=== PATIENT | female | born 1950 | race Caucasian/White ===

== ENCOUNTER 2017-01-03 11:17 | Observation (INO) ==
[2017-01-03 11:32] LABS: Bilirubin,Urine Negative (Negative); Blood,Urine Negative (Negative); Clarity,Urine Clear (Clear); Color,Urine Yellow (Yellow); Glucose,Urine (UA) Normal (Normal); Ketones,Urine Negative (Negative); Leukocyte Esterase,Urine Small (Negative); Nitrite,Urine Negative (Negative); PH,Urine 6.5 pH Units (5.0-8.0); Protein,Urine Negative (Neg-Trace); Urobilinogen,Urine Normal (Normal)
[2017-01-03 11:35] LABS: Bacteria,Urine None Seen per hpf (None-Few); Hyaline Casts,Urine None Seen per lpf (None-Few); RBC,Urine 0-3 per hpf (0-3); Squamous Epithelial Cell,Urine Many per lpf (None-Few); WBC,Urine 0-3 per hpf (0-3)
[2017-01-03 11:39] LABS: Basophils # 0.1 K/mcL (0.0-0.2); Basophils % 0.6 %; Eosinophils # 0.2 K/mcL (0.0-0.6); Eosinophils % 1.4 %; Hemoglobin 15.3 g/dL (11.5-15.4); Immature Granulocytes % 0.3 % (0-4); Lymphocytes # 1.6 K/mcL (0.6-4.6); Mean Corpuscular HGB Conc 32.6 g/dL (31.6-35.5); Mean Corpuscular Hemoglobin 26.7 pg (28.0-33.3); Mean Platelet Volume 9.9 fL (9.4-12.4); Monocytes # 0.8 K/mcL (0.0-1.3); Neutrophils # 8.8 K/mcL (1.6-8.9); Platelet Count 274 K/mcL (140-400); Red Blood Count 5.73 M/mcL (3.82-4.97); Red Cell Distribution Width 12.7 % (11.5-14.5); Segmented Neutrophils % 76.7 %
[2017-01-03 11:52] LABS: BUN/Creatinine Ratio 9 (6-26); Blood Urea Nitrogen 7 mg/dL (7-20); Calcium 9.7 mg/dL (8.6-10.8); Carbon Dioxide 28 mEq/L (19-29); Chloride 104 mEq/L (98-109); Glucose 94 mg/dL (70-99); Osmolality,Calculated 288 (280-300); Potassium 4.1 mEq/L (3.5-4.5); Sodium 140 mEq/L (136-145); eGFR For African Americans > 60 (> 60); eGFR For Non-African Americans > 60 (> 60)
[2017-01-03] MEDS ORDERED: Aspirin 81 MG TAB.CHEW PO ONE (12:20)
--- NOTE | 2017-01-03 12:20 | Emergency Department Note ---
Disposition Clinical Impression: Chest pain Qualifiers: Chest pain type: unspecified Qualified Code(s): R07.9 - Chest pain, unspecified Disposition: Admitted As Inpatient Condition: Good Referrals: Ernst Rosario DO [Primary Care Provider] - Time of Disposition: 12:23 Chest Pain HPI - General Chief Complaint: ED Chest Pain Stated Complaint: jaw pain arm pain Time Seen by Provider: 01/03/17 11:19 Source: patient Limitations: no limitations Vital Signs Reviewed: Yes Nursing Notes Reviewed: Yes - History of Present Illness HPI Narrative: Previously healthy 66-year-old female presents with progressive symptoms over the last 3 days. 3 days ago she noted severe malaise that lasted several hours with mild associated shortness of breath. She denied any attempts at exertion that would have worsen her symptoms. Symptoms remitted on their own. Yesterday , the patient again noted malaise and had mild symptoms and her left jaw. Today , she had significant pain in her left jaw, left upper chest, and left arm. This was associated with shortness of breath and paresthesias. Seen at urgent care for same and sent here for evaluation. Pain resolved on my evaluation. Severity scale (1-10): 0 - Related Data Home Medications Medication Instructions Recorded Confirmed Ca/D3/Mag#11/Zinc/Patcher/Vasyl/Bor 1 tab PO DAILY 01/03/17 01/03/17 [Caltrate 600+D Plus Tablet] Cholecalciferol (D-3) [Vitamin D] 1,000 unit PO DAILY 01/03/17 01/03/17 Cranberry 500 mg PO DAILY 01/03/17 01/03/17 Fluticasone Propionate Nasal 1 spray NS DAILY PRN 01/03/17 01/03/17 [Flonase] Krill/Om-3/Dha/Epa/Phospho/Ast 1,000 mg PO DAILY 01/03/17 01/03/17 [Krill Oil 1,000 mg Softgel] Vitamin E 100 unit PO DAILY 01/03/17 01/03/17 Allergies Allergy/AdvReac Type Severity Reaction Status Date / Time doxycycline Allergy Hives Verified 01/03/17 10:18 ibuprofen Allergy Gastrointestinal Verified 01/03/17 10:18 Upset All systems ED: reviewed and negative except as stated. Chest Pain PMH - Past Medical History Medical history: Reports: non-contributory - Social History Smoking Status: Never smoker Alcohol use: Reports: none Drug use: Reports: none Physical Exam - Head Head exam: atraumatic, normocephalic, normal inspection - Eye Eye exam: Present: normal appearance, PERRL, EOMI - ENT ENT exam: normal exam, normal oropharynx, mucous membranes moist - Neck Neck exam: Present: normal inspection, full ROM, trachea midline - Chest Chest inspection: Present: normal inspection, symmetric chest wall rise - Respiratory Respiratory exam: Clear to auscultation bilaterally without wheezes rales or rhonchi Cardiovascular Cardiovascular exam: Present: regular rate, normal rhythm, normal heart sounds - Abdominal Exam Abdominal exam: Present: soft, Non-Tender. Absent: tenderness, distention, guarding, rebound, rigidity - Extremities Exam Extremities exam: Present: normal inspection, full ROM - Expanded Lower Extremity Exam Hip/Pelvis exam: Present: normal inspection, full ROM - Back Exam Back exam: Present: normal inspection, full ROM. Absent: tenderness, CVA tenderness (R), CVA tenderness (L) - Neurological Exam Neurological exam: Present: alert, oriented X3, CN II-XII intact. Normal motor and sensory exam. Symptoms are not reproducible with cervical compression. - Psychiatric Psychiatric exam: Present: normal affect, normal mood - Skin Skin exam: Present: warm, dry, intact, normal color - General Limitations: no limitations Course - Reevaluation(s) Reevaluation #1: Troponin negative. EKG shows normal sinus rhythm at 70 with normal axis and intervals. There is mild diffuse T-wave flattening. No old EKG available for comparison. Patient has never had a stress test in the past. We will admit her for chest pain. Time: 12:22 Vital Signs Temperature 98.1 F 01/03/17 11:20 Pulse Rate 75 01/03/17 11:20 Respiratory Rate 18 01/03/17 11:20 Blood Pressure 155/84 01/03/17 11:20 O2 Sat by Pulse Oximetry 98 01/03/17 11:20 Temperature 98.1 F 01/03/17 13:55 Pulse Rate 71 01/03/17 13:55 Respiratory Rate 18 01/03/17 13:55 Blood Pressure 148/83 01/03/17 13:55 O2 Sat by Pulse Oximetry 96 01/03/17 13:55 Chest Pain - Lab Data Result diagrams: 01/03/17 11:32 01/03/17 11:32 Lab Results 01/03/17 01/03/17 01/03/17 Range/Units 11:24 11:32 11:32 WBC 11.5 H (4.3-11.1) K/mcL RBC 5.73 H (3.82-4.97) M/mcL Hgb 15.3 (11.5-15.4) g/dL Hct 47.0 H (35.3-44.9) % MCV 82.0 L (83.0-100.0) fL MCH 26.7 L (28.0-33.3) pg MCHC 32.6 (31.6-35.5) g/dL RDW 12.7 (11.5-14.5) % Plt Count 274 (140-400) K/mcL MPV 9.9 (9.4-12.4) fL Immature Gran % 0.3 (0-4) % Seg Neutrophils % 76.7 % Lymphocytes % 14.0 % Monocytes % 7.0 % Eosinophils % 1.4 % Basophils % 0.6 % Neutrophils # 8.8 (1.6-8.9) K/mcL Lymphocytes # 1.6 (0.6-4.6) K/mcL Monocytes # 0.8 (0.0-1.3) K/mcL Eosinophils # 0.2 (0.0-0.6) K/mcL Basophils # 0.1 (0.0-0.2) K/mcL Sodium 140 (136-145) mEq/L Potassium 4.1 (3.5-4.5) mEq/L Chloride 104 (98-109) mEq/L Carbon Dioxide 28 (19-29) mEq/L BUN 7 (7-20) mg/dL Creatinine 0.76 (0.57-1.11) mg/dL Est GFR ( Amer) > 60 (> 60) Est GFR (Non-Af Amer) > 60 (> 60) BUN/Creatinine Ratio 9 (6-26) Glucose 94 (70-99) mg/dL Est Mean Plasma Glucose mg/dl Hemoglobin A1c ( - 5.6) % Calculated Osmolality 288 (280-300) Calcium 9.7 (8.6-10.8) mg/dL Troponin I (0-0.03) ng/mL Triglycerides 189 H (< 150) mg/dL Cholesterol 160 (< 200) mg/dL LDL Cholesterol, Calc 88 (0-99) mg/dL VLDL Cholesterol, Calc 38 H (< 31) mg/dL HDL Cholesterol 34 L (40-59) mg/dL Cholesterol/HDL Ratio 4.7 (0-4.9) TSH 1.811 (0.350-4.840) mcIU/mL Urine Color Yellow (Yellow) Urine Clarity Clear (Clear) Urine pH 6.5 (5.0-8.0) pH Units Ur Specific [place] 1.010 (1.010-1.025) Urine Protein Negative (Neg-Trace) mg/dL Urine Glucose (UA) Normal (Normal) mg/dL Urine Ketones Negative (Negative) mg/dL Urine Blood Negative (Negative) Urine Nitrite Negative (Negative) Urine Bilirubin Negative (Negative) Urine Urobilinogen Normal (Normal) mg/dL Ur Leukocyte Esterase Small H (Negative) Urine Microscopic RBC 0-3 (0-3) per hpf Urine Microscopic WBC 0-3 (0-3) per hpf Ur Squamous Epith Cells Many H (None-Few) per lpf Urine Bacteria None Seen (None-Few) per hpf Hyaline Casts None Seen (None-Few) per lpf Ur Culture Indicated? YES A (NO) 01/03/17 01/03/17 Range/Units 11:32 11:32 WBC (4.3-11.1) K/mcL RBC (3.82-4.97) M/mcL Hgb (11.5-15.4) g/dL Hct (35.3-44.9) % MCV (83.0-100.0) fL MCH (28.0-33.3) pg MCHC (31.6-35.5) g/dL RDW (11.5-14.5) % Plt Count (140-400) K/mcL MPV (9.4-12.4) fL Immature Gran % (0-4) % Seg Neutrophils % % Lymphocytes % % Monocytes % % Eosinophils % % Basophils % % Neutrophils # (1.6-8.9) K/mcL Lymphocytes # (0.6-4.6) K/mcL Monocytes # (0.0-1.3) K/mcL Eosinophils # (0.0-0.6) K/mcL Basophils # (0.0-0.2) K/mcL Sodium (136-145) mEq/L Potassium (3.5-4.5) mEq/L Chloride (98-109) mEq/L Carbon Dioxide (19-29) mEq/L BUN (7-20) mg/dL Creatinine (0.57-1.11) mg/dL Est GFR ( Amer) (> 60) Est GFR (Non-Af Amer) (> 60) BUN/Creatinine Ratio (6-26) Glucose (70-99) mg/dL Est Mean Plasma Glucose 105 mg/dl Hemoglobin A1c 5.3 ( - 5.6) % Calculated Osmolality (280-300) Calcium (8.6-10.8) mg/dL Troponin I 0.00 (0-0.03) ng/mL Triglycerides (< 150) mg/dL Cholesterol (< 200) mg/dL LDL Cholesterol, Calc (0-99) mg/dL VLDL Cholesterol, Calc (< 31) mg/dL HDL Cholesterol (40-59) mg/dL Cholesterol/HDL Ratio (0-4.9) TSH (0.350-4.840) mcIU/mL Urine Color (Yellow) Urine Clarity (Clear) Urine pH (5.0-8.0) pH Units Ur Specific [place] (1.010-1.025) Urine Protein (Neg-Trace) mg/dL Urine Glucose (UA) (Normal) mg/dL Urine Ketones (Negative) mg/dL Urine Blood (Negative) Urine Nitrite (Negative) Urine Bilirubin (Negative) Urine Urobilinogen (Normal) mg/dL Ur Leukocyte Esterase (Negative) Urine Microscopic RBC (0-3) per hpf Urine Microscopic WBC (0-3) per hpf Ur Squamous Epith Cells (None-Few) per lpf Urine Bacteria (None-Few) per hpf Hyaline Casts (None-Few) per lpf Ur Culture Indicated? (NO) Attestation Statement - Attestation Attestation: I examined this patient and my medical decision-making was reviewed with the LAUNCHING PAD MECHANIC/PA/Advanced Practice Nurse/Resident Physician. I agree with the documented findings, disposition and treatment plan as described except to the extent set forth below. Patient to emergency department with complaint of jaw pain. Patient states she started feeling very weak couple of days ago. It was diffuse. This morning after she arose she felt a sharp pain in her jaw. States it was associated with tingling in the left side of her face and down her left arm. The tingling has improved. Denies weakness or visual changes. The patient has a normal neurologic exam with an NIH of 0. Heart regular lungs clear. Plan. Cardiac workup is unremarkable. The patient's symptoms are rapidly improving. She is admitted for further workup.
--- NOTE | 2017-01-03 13:07 | Internal Med History&Physical ---
<Luci Villasenor - Last Filed: 01/03/17 15:07> Date of Encounter: 01/03/17 Time of Encounter: 13:04 Assessment and Plan (1) Paresthesia Current visit: Yes Status: Acute to left jaw, arm and leg that started day prior to admission. Sx's improved in the ED. No hx CVA; reports 4 similar episodes in the last year. Initial troponin negative and EKG without acute ST changes. Etiology unknown at this time. Will cycle trop to rule out ACS. CT head STAT. TSH, Hgb A1c, lipid profile , echo, brain MRI pending. On ASA (2) DVT prophylaxis Current visit: Yes Status: Acute lovenox Internal Medicine - H&P: HPI Chief complaint: left jaw pain with numbness/tingling History of present illness: Ms. Keating is a 66 year old female with no significant PMH who presented to [facility] on 01/03/2017 with complaints of left side jaw pain with associated numbness/ tingling to left arm and leg. She was placed in observation status for acute stroke work-up. Information obtained from patient report and chart review. Patient says she has had several episodes of severe weakness and malaise over the last week. Says she became acutely tired and weak. Says she noticed left jaw pain pain that turned into numbness/tingling that went down to her left arm. She says she had numbness/tingling to left thigh as well. She went to urgent care and was sent to the ER. On my exam she says all sx's are resolved with the exception of numbness/tingling to left cheek area. No CP, she did have SOB yesterday when she was tires. No double or blurred vision, no slurred speech , no extremity weakness. Says she has had 4 similar episodes over the last year Past Med Surg Social Fam HX - Past Medical History Medical history: non-contributory - Past Surgical History Surgical History: hysterectomy - Social History Smoking Status: Never smoker Smokeless Tobacco Status: No Alcohol use: none Drug use: none - Family History Mother Living Status: Hx Family Cardiac Disorders: Yes Father Living Status: Hx Family Cardiac Disorders: Yes Internal Medicine - H&P: Meds Ca/D3/Mag#11/Zinc/Garnett Machine Operator/Vasyl/Bor [Caltrate 600+D Plus Tablet] 1 tab PO DAILY 01/03 [History] Cholecalciferol (D-3) [Vitamin D] 1,000 unit PO DAILY 01/03/17 [History] Cranberry 500 mg PO DAILY 01/03/17 [History] Fluticasone Propionate Nasal [Flonase] 1 spray NS DAILY PRN 01/03/17 [History] Krill/Om-3/Dha/Epa/Phospho/Ast [Krill Oil 1,000 mg Softgel] 1,000 mg PO DAILY [History] Vitamin E 100 unit PO DAILY 01/03/17 [History] Allergies doxycycline Allergy (Verified 01/03/17:) Hives ibuprofen Allergy (Verified 01/03/17:) Gastrointestinal Upset All Systems PM: A 10-system review of systems was performed and is negative for pertinent findings except as documented above in the HPI. - Constitutional Constitutional: no chills, no fever(s), no night sweats - EENT Eyes: no change in vision, no discharge, no pain, no photophobia Ears: no ear discharge, no ear pain, no tinnitus Nose, mouth and throat: no dysphagia, no nasal discharge, no neck pain, no sore throat - Cardiovascular Cardiovascular ROS IM: no chest pain, no diaphoresis, no dyspnea, no lightheadedness, no palpitations, no syncope - Respiratory Respiratory: no cough, no dyspnea, no wheezing, no excessive phlegm production - Gastrointestinal Gastrointestinal: no abdominal pain, no diarrhea, no hematemesis, no hematochezia, no melena, no nausea, no vomiting - Genitourinary Genitourinary: no change in urinary stream, no dysuria, no flank pain, no hematuria - Musculoskeletal Musculoskeletal ROS IM: no numbness, no tingling - Integumentary Integumentary IM: no rash, no unusual bruising - Neurological Neurological ROS: paresthesias, no confusion, no convulsions, no focal weakness , no numbness, no tingling, no tremor(s) Additional comments: to left cheek - Hematologic/Lymphatic Hematologic/Lymphatic: no easy bruising - Constitutional Vitals: Temp Pulse Resp BP Pulse Ox 98.1 F 69 18 139/74 97 01/03/17 11:20 01/03/17 12:34 01/03/17 12:49 01/03/17 12:49 01/03/17 12:34 General appearance: Present: A&O X 3, no acute distress - Head Head exam: Present: atraumatic, normocephalic - Eye Eye exam: Present: PERRL, conjuntiva pink, sclera anicteric Pupils: Present: PERRL - Neck Neck exam general surgery: Present: supple, trachea midline. Absent: lymphadenopathy - Respiratory Respiratory exam: Present: CTAB. Absent: accessory muscle use, rales, rhonchi, wheezes - Cardiovascular Cardiovascular exam: Present: RRR, +S1, +S2. Absent: diastolic murmur, gallop, rubs, systolic murmur - GI/Abdominal GI/Abdominal exam: Present: normal bowel sounds, soft, no peritoneal signs. Absent: distended, tenderness - Extremities Exam Extremities exam: Present: warm, radial pulses palpable and symetrical. Absent : calf tenderness, cyanotic, pedal edema - Neurological Exam Neurological exam: Present: alert, CN II-XII intact, oriented X3, no focal deficits. Absent: pronater drift, facial droop, speech deficit - Skin Skin exam: Present: dry, intact Internal Med - H&P Results - Labs CBC & Chem 7: 01/03/17 11:32 01/03/17 11:32 Labs: Short CBC 01/03/17 Range/Units 11:32 WBC 11.5 H (4.3-11.1) K/mcL Hgb 15.3 (11.5-15.4) g/dL Hct 47.0 H (35.3-44.9) % Plt Count 274 (140-400) K/mcL Neutrophils # 8.8 (1.6-8.9) K/mcL BMP 01/03/17 11:32 Sodium 140 Potassium 4.1 Chloride 104 Carbon Dioxide 28 BUN 7 Creatinine 0.76 Glucose 94 Calcium 9.7 Cardiac Enzymes 01/03/17 Range/Units 11:32 Troponin I 0.00 (0-0.03) ng/mL Urine 01/03/17 Range/Units 11:24 Urine Color Yellow (Yellow) Urine Clarity Clear (Clear) Urine pH 6.5 (5.0-8.0) pH Units Ur Specific [place] 1.010 (1.010-1.025) Urine Protein Negative (Neg-Trace) mg/dL Urine Glucose (UA) Normal (Normal) mg/dL - Impressions ITS Impressions Chest X-Ray 01/03/17 11:20 IMPRESSION: No acute process. D/ / Gopal Barton MD / Gopal Barton MD Interpreting Provider: Gopal Barton MD <Lennyrahel - Last Filed: 01/03/17 16:07> Date of Encounter: 01/03/17 Time of Encounter: 13:45 Internal Medicine - H&P: HPI History of present illness: Ms. Keating is a 66 year old female All Systems PM: A 10-system review of systems was performed and is negative for pertinent findings except as documented above in the HPI. - Constitutional Vitals: Temp Pulse Resp BP Pulse Ox 98.1 F 71 18 148/83 96 01/03/17 13:55 01/03/17 13:55 01/03/17 13:55 01/03/17 13:55 01/03/17 13:55 Internal Med - H&P Results - Labs CBC & Chem 7: 01/03/17 11:32 01/03/17 11:32 - Impressions ITS Impressions Head CT 01/03/17 13:00 IMPRESSION: No acute intracranial abnormality. D/ / Edin Seymour MD / Edin Seymour MD Interpreting Provider: Edin Seymour MD - Attending Attestation I examined this patient and my medical decision-making was reviewed with the nurse practitioner. I agree with the documented history of present illness, review of systems, past medical, surgical social and family histories and examination findings, disposition and treatment plan as described above except to any changes set forth below. 66-year-old female patient with history of essential hypertension presented to the ER with paresthesias with numbness and pain involving her left face, left upper and lower extremities. Symptoms began this morning and have now mostly resolved. She has been having some malaise for the past 2- 3 days. She has also been having increased anxiety and shortness of breath. Denies any chest pain or palpitations. On examination, patient is awake and alert, heart sounds. Respiratory examination is within normal limits. Neurologic examination shows normal strength and reflexes with normal sensation and this time. Left-sided paresthesias with possible TIA: Will get MRI of the brain. Carotid Dopplers. Observation in the hospital. Check lipid profile. Check A1c. DVT prophylaxis. Essential hypertension: Monitor blood pressure. Resume home medications.
[2017-01-03 13:31] LABS: Chol/HDL Ratio 4.7 (0-4.9); Cholesterol 160 mg/dL (< 200); HDL Cholesterol 34 mg/dL (40-59); Hemoglobin A1C 5.3 %; LDL Cholesterol,Calculated 88 mg/dL (0-99); Triglycerides 189 mg/dL (< 150)
[2017-01-03 13:51] LABS: Thyroid Stimulating Hormone 1.811 mcIU/mL (0.350-4.840)
--- NOTE | 2017-01-03 15:27 | Electrocardiograph Report ---
[address] [address] Test Date: 2017-01-03 Pat Name: Geovanna Keating Department: 102 Room: [facility] Gender: F Log Tumbler: : 1950 Requested By: Fidencio Prieto Order Number: [id number] Reading MD: Jessica Horowitz Measurements Intervals [place] Rate: 70 P: 36 ME: 176 QRS: 9 QRSD: 93 T: 41 QT: 377 QTc: 397 Interpretive Statements SINUS RHYTHM Electronically Signed On 01-03-2017 15:26:18 EDT by Jessica Horowitz
--- NOTE | 2017-01-03 23:34 | Carotid Imaging Report ---
Carotid Duplex Patient Name:Geovanna Keating Order Number:[id number] Procedure Date:01/03/2017 Date:1950ge:66 yrs Gender:Female Lt BP:148 / 83 mmHg Rt.BP:139 / 74 mmHgHeart Rate: Location:[facility] Room #: 52 Liquid Center Assembler:Krysten Burciaga Referring MD:Luci Villasenor INTERNATIONAL TRADE SPECIALIST starter cup powder mixer:Ernst Rosario DO Reading MD:Papo Leos MD , FACS Primary Indications:TIA Impressions: Findings: Bilateral carotid systems are essentially normal. Recommendations: After imaging the patient returned to their room. Findings Carotid Duplex: [place] scale imaging combined with Doppler flow analysis suggests normal findings bilaterally. Right: The right proximal common carotid artery has a PSV of 84 cm/s and a EDV of 18 cm/s. The right mid common carotid artery has a PSV of 80 cm/s and a EDV of 17 cm/s. The right distal common carotid artery has a PSV of 61 cm/s and a EDV of 19 cm/s. The right bifurcation has a PSV of 58 cm/s and a EDV of 17 cm/s. The right proximal internal carotid artery has a PSV of 80 cm/s and a EDV of 26 cm/s. The right mid internal carotid artery has a PSV of 41 cm/s and a EDV of 14 cm/s. The right distal internal carotid artery has a PSV of 92 cm/s and a EDV of 34 cm/s. The right eca has a PSV of 99 cm/s and a EDV of 14 cm/s. The right vertebral artery has a PSV of 49 cm/s and a EDV of 14 cm/s. Left: The left proximal common carotid artery has a PSV of 91 cm/s and a EDV of 20 cm/s. The left mid common carotid artery has a PSV of 100 cm/s and a EDV of 26 cm/s. The left distal common carotid artery has a PSV of 64 cm/s and a EDV of 19 cm/s. The left bifurcation has a PSV of 68 cm/s and a EDV of 19 cm/s. The left proximal internal carotid artery has a PSV of 82 cm/s and a EDV of 27 cm/s. The left mid internal carotid artery has a PSV of 81 cm/s and a EDV of 31 cm/s. The left distal internal carotid artery has a PSV of 92 cm/s and a EDV of 37 cm/s. The left eca has a PSV of 79 cm/s and a EDV of 6 cm/s. The left vertebral artery has a PSV of 57 cm/s and a EDV of 18 cm/s. Prior Study: No prior study available for comparison. Carotid Results Right PSV EDV Assessment Proximal CCA 84 18 Mid CCA 80 17 Distal CCA 61 19 Bifurcation 58 17 Proximal ICA 80 26 Mid ICA 41 14 Distal ICA 92 34 ECA 99 14 Vertebral Artery 49 14 Left PSV EDV Assessment Proximal CCA 91 20 Mid CCA 100 26 Distal CCA 64 19 Bifurcation 68 19 Proximal ICA 82 27 Mid ICA 81 31 Distal ICA 92 37 ECA 79 6 Vertebral Artery 57 18 Ratio's Updated by Papo Leos MD, FACS on 01/03/2017 11:28:07 PM Papo Leos MD electronically signed on 01/03/2017 11:28:39 PM with status of Final
[2017-01-04 00:46] LABS: Basophils # 0.1 K/mcL (0.0-0.2); Basophils % 0.6 %; Eosinophils # 0.2 K/mcL (0.0-0.6); Eosinophils % 2.4 %; Hematocrit 40.7 % (35.3-44.9); Immature Granulocytes % 0.3 % (0-4); Lymphocytes # 2.5 K/mcL (0.6-4.6); Lymphocytes % 26.6 %; Mean Corpuscular HGB Conc 33.2 g/dL (31.6-35.5); Mean Corpuscular Hemoglobin 27.2 pg (28.0-33.3); Mean Corpuscular Volume 82.1 fL (83.0-100.0); Mean Platelet Volume 10.3 fL (9.4-12.4); Monocytes # 1.1 K/mcL (0.0-1.3); Monocytes % 11.3 %; Neutrophils # 5.6 K/mcL (1.6-8.9); Platelet Count 237 K/mcL (140-400); Red Blood Count 4.96 M/mcL (3.82-4.97); Red Cell Distribution Width 12.9 % (11.5-14.5); Segmented Neutrophils % 58.8 %
[2017-01-04 00:47] LABS: Hemoglobin 13.5 g/dL (11.5-15.4)
[2017-01-04 05:12] LABS: BUN/Creatinine Ratio 12 (6-26); Blood Urea Nitrogen 9 mg/dL (7-20); Calcium 8.8 mg/dL (8.6-10.8); Carbon Dioxide 22 mEq/L (19-29); Chloride 107 mEq/L (98-109); Glucose 102 mg/dL (70-99); Osmolality,Calculated 291 (280-300); Potassium 3.8 mEq/L (3.5-4.5); Sodium 141 mEq/L (136-145); eGFR For African Americans > 60 (> 60); eGFR For Non-African Americans > 60 (> 60)
[2017-01-04] MEDS ORDERED: Aspirin 81 MG TAB.CHEW PO SCH (09:00)
--- NOTE | 2017-01-04 10:34 | Discharge Summary ---
Date of Encounter: 01/04/17 Time of Encounter: 09:05 - Discharge Diagnosis (1) Paresthesia Priority: Primary Status: Acute Comments: Patient reports sudden onset left jaw pain and tingling and left face and left cheek yesterday at 7 AM when patient was at work. She says the jaw pain encompassed her whole left mandible and stopped at midline. She also said she had some numbness and tingling in her left shoulder that went down her left arm. Also reports left hip felt tingly laterally only to mid thigh. She denies any changes in vision, denies slurred speech, denies short-term memory loss, and denies weakness. She said she did have extreme fatigue when this happened. She reports that all symptoms have resolved and she has returned to baseline. Carotid Doppler findings show that bilateral carotid systems are essentially normal. Head CT negative for intracranial abnormality. Echo done yesterday LVEF 60%, normal LV chamber size and function, mild concentric left ventricular hypertrophy. Mild diastolic dysfunction, normal right ventricular size and function. No evidence of pulmonary hypertension. Troponins were negative, labs WNL. Urine positive for trace of leukocyte esterase, no blood or bacteria. (2) Left facial numbness Priority: Secondary Status: Resolved Comments: Plan as above. Resolved. (3) Left arm numbness Priority: Secondary Status: Resolved Comments: Resolved. (4) Fatigue Priority: Secondary Status: Chronic Comments: Pt reports intermittent, sudden onset fatigue, 4 episodes over the last year. Pt states that it lasts about a day, but she says she doesn't feel well for about 3 days. She said that with her symptoms of parasthesia yesterday, she was tired, but not the normal fatigue that she experienced previously. She has not followed up with PCP for this. Echo results as above. Labs are WNL. Urine is essentially negative, but culture is pending. Pt will follow up outpt with PCP for continued evaluation. Qualifiers: Fatigue type: chronic, unspecified Qualified Code(s): R53.82 - Chronic fatigue, unspecified (5) DVT prophylaxis Priority: Secondary Status: Acute - Discharge Medications Home Medications: RX: Ca/D3/Mag#11/Zinc/Physician Aide/Vasyl/Bor [Caltrate 600+D Plus Tablet] 1 tab PO DAILY 01/03/17 [History] RX: Cholecalciferol (D-3) [Vitamin D] 1,000 unit PO DAILY 01/03/17 [History] RX: Cranberry 500 mg PO DAILY 01/03/17 [History] RX: Fluticasone Propionate Nasal [Flonase] 1 spray NS DAILY PRN 01/03/17 [ History] RX: Krill/Om-3/Dha/Epa/Phospho/Ast [Krill Oil 1,000 mg Softgel] 1,000 mg PO DAILY 01/03/17 [History] RX: Vitamin E 100 unit PO DAILY 01/03/17 [History] RX: Aspirin 81 mg PO DAILY tab.chew 01/04/17 [Rx] Allergies/Adverse Reactions: Allergies doxycycline Allergy (Verified 01/03/17 10:18) Hives ibuprofen Allergy (Verified 01/03/17 10:18) Gastrointestinal Upset Procedures/tests Complete & Pending: Procedures Performed prior 72 hours Category Date Time Status CT head/brain wo con [CT] Stat Cat Scan 01/03/17 13:00 Completed MR head/brain wo con [MR] Stat MRI 01/03/17 13:25 Completed EV carotid duplex imaging BI Stat Y 01/03/17 13:27 Completed Date of admission: 01/03/17 12:37 Primary care physician: Ernst Rosario DO Discharging clinician: Makenzie Fontaine Anticipated date of discharge: 01/04/17 - Patient Status Disposition: Home, Self-Care Condition: Good Functional capacity at discharge: independent ambulation Overall status at discharge: patient is back to baseline - Discharge Instructions Instructions: Chest Pain (DC) Follow Up With: Donna Wells CNP [Advanced Practice Nurse] - 01/11/17 9:00 am Additional Instructions: Please follow up with your primary care physician for a follow up in 7-10 days Resume your home medications Return to the ER immediately if your symptoms return or if you have any other problems or concerns. - Diet and Activity Activity: increase activity as tolerated Diet: advance to your usual diet Interval History: Patient reports sudden onset left mandible pain midline radiating left to TMJ and tingling in her left face and left cheek onset yesterday morning at 7:00. She also reports shortness of breath even at rest with the episode. She reports some left shoulder and left arm tingling and some left lateral thigh from hip to mid thigh tingling as well. She denies any chest pain. Symptoms resolved at 1500 yesterday and she said that only mild tingling to left cheek remained last night. It is all gone now. She denies changes in vision, slurred speech, short-term memory loss, or weakness. She said she did have some fatigue with this episode as well. Separate from this issue she reports 4 episodes of fatigue over the last year. She said the last one was in August. She suffered sudden onset and lasted several hours. She said she does not feel well for a few days after these episodes. At this time there is no imaging or lab that indicates why this would be happening. Patient agrees to follow up with her primary care physician outpatient for further testing. Patient had carotid Dopplers done that are essentially normal. Her head CT is negative for any acute intracranial abnormality. Echocardiogram done last night. EF of 60%, mild concentric LV hypertrophy, mild LV diastolic dysfunction. Normal RV structure and function and no evidence of pulmonary hypertension. She is not having chest pain and states that she has not had chest pain through this whole event. Troponin was negative 3. Vital signs are stable. Labs are within normal limits. Hospital course: Ms. Keating is a 66 year old female - Time Spent with Patient Total time spent providing and/or coordinating discharge services: Less than 30 minutes - Constitutional Vitals: Temp Pulse Resp BP Pulse Ox 98.1 F 77 16 146/82 94 01/04/17 07:45 01/04/17 07:45 01/04/17 07:45 01/04/17 07:45 01/04/17 07:45 General appearance: Present: cooperative, A&O X 3, pleasant, no acute distress, answers questions appropriately - Head Head exam: Present: normal inspection - Eye Eye exam: Present: normal appearance, conjuntiva pink - ENT ENT exam: Present: mucous membranes moist, normal exam, normal oropharynx - Neck Neck exam general surgery: Present: normal inspection. Absent: lymphadenopathy , tenderness - Respiratory Respiratory exam: Present: CTAB. Absent: decreased breath sounds, rales, respiratory distress, rhonchi, wheezes - Cardiovascular Cardiovascular exam: Present: RRR, +S1, +S2. Absent: diastolic murmur, systolic murmur - GI/Abdominal GI/Abdominal exam: Present: normal bowel sounds, soft. Absent: distended, hepatomegaly, tenderness - Extremities Exam Extremities exam: Present: normal inspection, warm, radial pulses palpable and symetrical. Absent: calf tenderness, pedal edema, tenderness - Neurological Exam Neurological exam: Present: alert, oriented X3, no focal deficits, strengths equal and symetr throughout. Absent: facial droop, speech deficit
--- NOTE | 2017-01-04 10:38 | ECHO - Doppler Report ---
Echo with Saline Contrast Name: Geovanna Keating Date of Study: 01/03/2017 Date: 1950 Ht: 62.0 in Medical Record#: [id number] Age: 66 Wt: 152.0 lb Gender: Female BSA: 1.7 Order #: [id number] Location: [facility] Room #: [facility] [place] Physician: Melvin Mcintyre DO, [facility] Hurley Loss Prevention/Safety District Manager: Krysten Burciaga Ordering Physician: Luci Villasenor CNP Primary Physician: Ernst Rosario DO Indications: ACS Impressions: LVEF 60%. Normal LV chamber size and function. Mild concentric left ventricular hypertrophy. Mild left ventricular diastolic dysfunction. Normal right ventricular structure and function. No evidence of pulmonary hypertension. Left Ventricular Wall Motion: Rest Echo Findings All wall segments showed normal motion. Findings: Study Quality * Technically adequate exam. ECG Findings * Normal sinus rhythm. Left Ventricle * LVEF 60%. * Normal LV chamber size and function. * Mild concentric left ventricular hypertrophy. * Mild left ventricular diastolic dysfunction. Right Ventricle * Normal right ventricular structure and function. Left Atrium * Mildly dilated left atrium. Right Atrium * Normal right atrial size. Interatrial Septum * No evidence of PFO with agitated saline contrast. Aortic Valve * Trileaflet aortic valve with normal function. * No aortic regurgitation. * No aortic stenosis. Mitral Valve * Mild mitral annular calcification * No mitral regurgitation. * No mitral stenosis. Tricuspid Valve * Normal tricuspid valve structure and function. * Trace tricuspid regurgitation. * No evidence of pulmonary hypertension. Pulmonic Valve * Pulmonic valve not well visualized. * No pulmonic regurgitation. Aorta * Normally sized aortic root. Pericardium * The pericardium appears normal. IVC * Normal IVC dimensions and inspiratory collapse. Pulmonary Artery * Normal visualized portions of the main pulmonary artery. History Family History of CAD Measurements: BP: 148/ 83 2D Normal Values RVIDd: 3.20 cm <2.7 cm IVSd: 1.30 cm 0.6 - 1.0 cm LVIDd: 4.00 cm 3.7 - 5.6 cm LVPWd: 1.30 cm 0.6 - 1.1 cm LVIDs: 3.10 cm 1.5 - 3.6 cm AO: 2.50 cm < 4.0 cm LA: 3.80 cm 2.0 - 4.0cm %FS: 22.50 cm >25 % LA volume: 39 Mitral Valve Peak E:.65 m/sec Peak A:.89 m/sec E/A Ratio:0.7 Peak E' Lat Henry:13.7 cm/s Peak E' Med Henry:8.38 cm/s E/E' Lat Ratio:4.7 E/E' Med Ratio:7.7 Tricuspid Valve TV Regurg Peak Grad: 19.00mmHg TV Regurg Peak Henry: 2.16m/sec Updated by Melvin Mcintyre DO, FACMei, DANNA, FASGENNARO on 01/04/2017 10:33:13 AM electronically signed on 01/04/2017 10:33:54 AM with status of Final Wall Motion Smith: 1=Normal, 2=Hypokinesis, 3=Akinesis, 4=Dyskinesis, 5=Aneurysmal, 6=Hyperkinetic, X=Not Visualized (Blank)=Missing
[2017-01-04 11:14] VITALS: BP 134/76
== END 2017-01-04 12:45 | disposition home or self-care (01) ==
LOC: 3BNU 11:17 → EMEROO 11:17 → 3BNU 13:30
PROVIDERS: ADMIT Registered Nurse; ATTEND Registered Nurse